=== PATIENT | male | born 1940 | race Caucasian/White ===

== ENCOUNTER 2018-10-12 16:17 | Inpatient (IN) ==
--- NOTE | 2018-10-12 16:26 | Emergency Department Note ---
Disposition Clinical Impression: Fever of unknown origin Disposition: Admitted As Inpatient Condition: Good Time of Disposition: 21:44 General Adult HPI - General Stated complaint: chest pain/weakness Time Seen by Provider: 10/12/18 16:18 Nursing Notes Reviewed: Yes Vital Signs Reviewed: Yes - History of Present Illness HPI Narrative: 78 -year-old male presents emergency department with concern for fever, low back pain, difficulty with incontinence of urine, difficulty with ambulation over the last few hours. Patient reports having history of lower back pain with surgery in March. He has recently been increasing his physical therapy of his lower lumbar back pain over the last few months. Patient also reports being at [facility] and picking blueberries over the last several days with his . They report no tick bites. He reported no rashes, no cough, no shortness of breath. Patient patient does have history of COPD, but is not on any oxygen at baseline. Denies any chest pain, abdominal pain, nausea, vomiting, dysuria, urinary frequency, urgency. - Related Data Allergies Allergy/AdvReac Type Severity Reaction Status Date / Time iodine Allergy Rash Verified 10/12/18 16:31 All systems ED: reviewed and negative except as stated. Review of Systems: As Per HPI Constitutional: Reports: fever Cardiovascular: Denies: chest pain Respiratory: Denies: cough, dyspnea, sputum production Gastrointestinal: Denies: abdominal pain, nausea, vomiting Genitourinary: Denies: urgency, dysuria, frequency Musculoskeletal: Reports: back pain Integumentary: Denies: rash Neurological: Reports: abnormal gait. Denies: numbness, paresthesias Physical Exam - General Limitations: no limitations General appearance: alert, in no apparent distress - Head Head exam: normocephalic - Eye Eye exam: Absent: scleral icterus - ENT ENT exam: normal oropharynx, mucous membranes dry - Neck Neck exam: Present: trachea midline. Absent: tenderness - Chest Chest inspection: Present: symmetric chest wall rise - Respiratory Respiratory exam: Present: normal lung sounds bilaterally. Absent: respiratory distress, accessory muscle use - Cardiovascular Cardiovascular exam: Present: normal rhythm, tachycardia, normal heart sounds - Abdominal Exam Abdominal exam: Present: soft, Non-Tender. Absent: distention, guarding, rebound, rigidity - Male exam: Present: normal inspection, normal testicular lie, other (sensation of the scrotum intact). Absent: erythema, ulcerations, testicular tenderness - Extremities Exam Extremities exam: Present: normal capillary refill. Absent: calf tenderness - Back Exam Back exam: Present: tenderness (midline lower lumbar spine) - Neurological Exam Neurological exam: Present: alert, oriented X3, CN II-XII intact. Absent: motor sensory deficit - Psychiatric Psychiatric exam: Present: normal affect, normal mood - Skin Skin exam: Present: warm, dry, intact, normal color. Absent: rash Course Vital Signs Temperature 103.3 F H 10/12/18 16:22 Pulse Rate 109 10/12/18 16:22 Respiratory Rate 28 10/12/18 16:22 Blood Pressure 165/84 10/12/18 16:22 O2 Sat by Pulse Oximetry 93 10/12/18 16:22 Temperature 99.3 F 10/12/18 21:30 Pulse Rate 88 10/12/18 21:30 Respiratory Rate 16 10/12/18 21:30 Blood Pressure 132/62 10/12/18 21:30 O2 Sat by Pulse Oximetry 94 10/12/18 21:30 Oxygen Delivery Oxygen Delivery Nasal Cannula Medical Decision Making - [facility] Narrative Medical decision making narrative: 78-year-old male presents emergency department with concern for fever, tachycardia, with lower lumbar back pain. No physical exam, patient does not have any rashes anywhere to be concern for cellulitis. No evidence of Waylon's gangrene upon inspection of the scrotal sac. Patient had a leukocytosis of 24,000. He was non-meningeal. No headache, do not suspect meningitis. No diarrhea to suspect C. difficile. Patient was started on vancomycin and Zosyn here. Chest CT did not reveal any evidence of pneumonia, CT scan of abdomen and pelvis revealed inflammation of the right inguinal region. Patient admitted for further management. Hemodynamically stable at that time. Afebrile. We have ordered an influenza swab as well as strep swab which are currently pending as well as blood cultures. Lumbar Spine MRI 10/12/18 16:32 IMPRESSION: Degenerative and operative changes as detailed above. Impingement of the exiting nerve roots at L4-5 and L5-S1. D/ / Catracho Qiu MD / Catracho Qiu MD Interpreting Provider: Catracho Qiu MD Abdomen/Pelvis CT 10/12/18 16:33 IMPRESSION: Mildly enlarged right inguinal lymph nodes with adjacent fat stranding, likely inflammatory/reactive. Correlation is recommended. Cholelithiasis. Left nephrolithiasis. D/ / Ananya Munroe Cha, MD / Ananya Munroe Cha, MD Interpreting Provider: Ananya Munroe Cha, MD Chest CT 10/12/18 16:33 IMPRESSION: Mildly enlarged right inguinal lymph nodes with adjacent fat stranding, likely inflammatory/reactive. Correlation is recommended. Cholelithiasis. Left nephrolithiasis. D/ / Ananya Munroe Cha, MD / Ananya Murnoe Cha, MD Interpreting Provider: Ananya Munroe Cha, MD Lumbar Spine CT 10/12/18 16:33 IMPRESSION: Minimal loss of height of the T6 and T11 vertebral bodies could represent prior compression fractures, likely remote. No acute bony abnormality of the lumbar spine. D/ / Ananya Munroe Cha, MD / Ananya Munroe Cha, MD Interpreting Provider: Ananya Munroe Cha, MD Thoracic Spine CT 10/12/18 16:33 IMPRESSION: Minimal loss of height of the T6 and T11 vertebral bodies could represent prior compression fractures, likely remote. No acute bony abnormality of the lumbar spine. D/ / Ananya Munroe Cha, MD / Ananya Munroe Cha, MD Interpreting Provider: Ananya Munroe Cha, MD - Lab Data Result diagrams: 10/12/18 16:20 10/12/18 16:20 Lab Results 10/12/18 10/12/18 10/12/18 Range/Units 16:15 16:20 16:20 WBC 24.1 H (4.3-11.1) K/mcL RBC 4.11 L (4.19-5.50) M/mcL Hgb 12.2 L (12.9-16.9) g/dL Hct 36.1 L (37.5-50.1) % MCV 87.8 (83.0-100.0) fL MCH 29.7 (28.0-33.3) pg MCHC 33.8 (31.6-35.5) g/dL RDW 13.2 (11.5-14.5) % Plt Count 157 (140-400) K/mcL MPV 10.7 (9.4-12.4) fL Immature Gran % 1.2 (0-4) % Seg Neutrophils % 90.9 % Lymphocytes % 4.2 % Monocytes % 3.5 % Eosinophils % 0.0 % Basophils % 0.2 % Neutrophils # 21.9 H (1.6-8.9) K/mcL Lymphocytes # 1.0 (0.6-4.6) K/mcL Monocytes # 0.8 (0.0-1.3) K/mcL Eosinophils # 0.0 (0.0-0.6) K/mcL Basophils # 0.1 (0.0-0.2) K/mcL ESR 20 H (0-10) mm/hr Sodium 135 L (136-145) mEq/L Potassium 3.5 (3.5-5.1) mEq/L Chloride 98 (98-107) mEq/L Carbon Dioxide 25 (23-29) mEq/L BUN 21 (8-23) mg/dL Creatinine 1.05 (0.70-1.30) mg/dL Est GFR ( Amer) > 60 (> 60) Est GFR (Non-Af Amer) > 60 (> 60) BUN/Creatinine Ratio 20 (6-26) Glucose 223 H (70-105) mg/dL POC Glucose (70-99) mg/dL Calculated Osmolality 290 (280-300) Lactic Acid (0.5-2.2) mmol/L Calcium 9.0 (8.6-10.3) mg/dL Phosphorus 2.1 L (2.7-4.5) mg/dL Magnesium 1.5 L (1.6-2.6) mg/dL Total Bilirubin 0.8 (0.3-1.0) mg/dL Direct Bilirubin 0.2 (0.0-0.2) mg/dL Indirect Bilirubin 0.6 (0.0-1.2) mg/dL AST 16 (13-39) Units/L ALT 14 (7-52) Units/L Alkaline Phosphatase 64 (34-104) Units/L Troponin I < 0.03 (< 0.04) ng/mL C-Reactive Protein 10 H (Less than 10) mg/L B-Natriuretic Peptide (Less than 100) pg/mL Serum Total Protein 6.9 (6.4-8.9) g/dL Albumin 4.1 (3.5-5.7) g/dL Globulin 2.8 (2.4-3.5) g/dL Albumin/Globulin Ratio 1.5 (1.1-2.2) Lipase 15 (11-82) Units/L Urine Color (Yellow) Urine Clarity (Clear) Urine pH (5.0-8.0) pH Units Ur Specific [place] (1.010-1.025) Urine Protein (Neg-Trace) mg/dL Urine Glucose (UA) (Normal) mg/dL Urine Ketones (Negative) mg/dL Urine Blood (Negative) Urine Nitrite (Negative) Urine Bilirubin (Negative) Urine Urobilinogen (Normal) mg/dL Ur Leukocyte Esterase (Negative) Urine Microscopic RBC (0-3) per hpf Urine Microscopic WBC (0-3) per hpf Ur Squamous Epith Cells (None-Few) per lpf Urine Bacteria (None-Few) per hpf Hyaline Casts (None-Few) per lpf Ur Culture Indicated? (NO) Lyme Total Antibody (Negative) 10/12/18 10/12/18 10/12/18 Range/Units 16:20 16:20 16:20 WBC (4.3-11.1) K/mcL RBC (4.19-5.50) M/mcL Hgb (12.9-16.9) g/dL Hct (37.5-50.1) % MCV (83.0-100.0) fL MCH (28.0-33.3) pg MCHC (31.6-35.5) g/dL RDW (11.5-14.5) % Plt Count (140-400) K/mcL MPV (9.4-12.4) fL Immature Gran % (0-4) % Seg Neutrophils % % Lymphocytes % % Monocytes % % Eosinophils % % Basophils % % Neutrophils # (1.6-8.9) K/mcL Lymphocytes # (0.6-4.6) K/mcL Monocytes # (0.0-1.3) K/mcL Eosinophils # (0.0-0.6) K/mcL Basophils # (0.0-0.2) K/mcL ESR (0-10) mm/hr Sodium (136-145) mEq/L Potassium (3.5-5.1) mEq/L Chloride (98-107) mEq/L Carbon Dioxide (23-29) mEq/L BUN (8-23) mg/dL Creatinine (0.70-1.30) mg/dL Est GFR ( Amer) (> 60) Est GFR (Non-Af Amer) (> 60) BUN/Creatinine Ratio (6-26) Glucose (70-105) mg/dL POC Glucose (70-99) mg/dL Calculated Osmolality (280-300) Lactic Acid 1.9 (0.5-2.2) mmol/L Calcium (8.6-10.3) mg/dL Phosphorus (2.7-4.5) mg/dL Magnesium (1.6-2.6) mg/dL Total Bilirubin (0.3-1.0) mg/dL Direct Bilirubin (0.0-0.2) mg/dL Indirect Bilirubin (0.0-1.2) mg/dL AST (13-39) Units/L ALT (7-52) Units/L Alkaline Phosphatase (34-104) Units/L Troponin I (< 0.04) ng/mL C-Reactive Protein (Less than 10) mg/L B-Natriuretic Peptide 149 H (Less than 100) pg/mL Serum Total Protein (6.4-8.9) g/dL Albumin (3.5-5.7) g/dL Globulin (2.4-3.5) g/dL Albumin/Globulin Ratio (1.1-2.2) Lipase (11-82) Units/L Urine Color (Yellow) Urine Clarity (Clear) Urine pH (5.0-8.0) pH Units Ur Specific [place] (1.010-1.025) Urine Protein (Neg-Trace) mg/dL Urine Glucose (UA) (Normal) mg/dL Urine Ketones (Negative) mg/dL Urine Blood (Negative) Urine Nitrite (Negative) Urine Bilirubin (Negative) Urine Urobilinogen (Normal) mg/dL Ur Leukocyte Esterase (Negative) Urine Microscopic RBC (0-3) per hpf Urine Microscopic WBC (0-3) per hpf Ur Squamous Epith Cells (None-Few) per lpf Urine Bacteria (None-Few) per hpf Hyaline Casts (None-Few) per lpf Ur Culture Indicated? (NO) Lyme Total Antibody Negative (Negative) 10/12/18 10/12/18 Range/Units 16:21 16:39 WBC (4.3-11.1) K/mcL RBC (4.19-5.50) M/mcL Hgb (12.9-16.9) g/dL Hct (37.5-50.1) % MCV (83.0-100.0) fL MCH (28.0-33.3) pg MCHC (31.6-35.5) g/dL RDW (11.5-14.5) % Plt Count (140-400) K/mcL MPV (9.4-12.4) fL Immature Gran % (0-4) % Seg Neutrophils % % Lymphocytes % % Monocytes % % Eosinophils % % Basophils % % Neutrophils # (1.6-8.9) K/mcL Lymphocytes # (0.6-4.6) K/mcL Monocytes # (0.0-1.3) K/mcL Eosinophils # (0.0-0.6) K/mcL Basophils # (0.0-0.2) K/mcL ESR (0-10) mm/hr Sodium (136-145) mEq/L Potassium (3.5-5.1) mEq/L Chloride (98-107) mEq/L Carbon Dioxide (23-29) mEq/L BUN (8-23) mg/dL Creatinine (0.70-1.30) mg/dL Est GFR ( Amer) (> 60) Est GFR (Non-Af Amer) (> 60) BUN/Creatinine Ratio (6-26) Glucose (70-105) mg/dL POC Glucose 223 H (70-99) mg/dL Calculated Osmolality (280-300) Lactic Acid (0.5-2.2) mmol/L Calcium (8.6-10.3) mg/dL Phosphorus (2.7-4.5) mg/dL Magnesium (1.6-2.6) mg/dL Total Bilirubin (0.3-1.0) mg/dL Direct Bilirubin (0.0-0.2) mg/dL Indirect Bilirubin (0.0-1.2) mg/dL AST (13-39) Units/L ALT (7-52) Units/L Alkaline Phosphatase (34-104) Units/L Troponin I (< 0.04) ng/mL C-Reactive Protein (Less than 10) mg/L B-Natriuretic Peptide (Less than 100) pg/mL Serum Total Protein (6.4-8.9) g/dL Albumin (3.5-5.7) g/dL Globulin (2.4-3.5) g/dL Albumin/Globulin Ratio (1.1-2.2) Lipase (11-82) Units/L Urine Color Yellow (Yellow) Urine Clarity Clear (Clear) Urine pH 6.0 (5.0-8.0) pH Units Ur Specific [place] 1.017 (1.010-1.025) Urine Protein Trace (Neg-Trace) mg/dL Urine Glucose (UA) 100 H (Normal) mg/dL Urine Ketones Negative (Negative) mg/dL Urine Blood Small H (Negative) Urine Nitrite Negative (Negative) Urine Bilirubin Negative (Negative) Urine Urobilinogen Normal (Normal) mg/dL Ur Leukocyte Esterase Negative (Negative) Urine Microscopic RBC 5-15 H (0-3) per hpf Urine Microscopic WBC 0-3 (0-3) per hpf Ur Squamous Epith Cells Few (None-Few) per lpf Urine Bacteria None Seen (None-Few) per hpf Hyaline Casts None Seen (None-Few) per lpf Ur Culture Indicated? NO (NO) Lyme Total Antibody (Negative) - EKG Data EKG #1 EKG attestation: Yes I reviewed and interpreted this EKG. EKG results narrative: 16:22 Rate 109 bpm, CA interval 199 ms, QRS duration 102 ms, QTC 442 ms, left axis deviation. Sinus tachycardia with occasional PVCs. No evidence of any ischemic ST changes.
[2018-10-12] MEDS ORDERED: Gadolinium Contrast Agent (WT Based) IV PRN (16:32)
[2018-10-12] MEDS ORDERED: 0.9 % Sodium Chloride 1,000 ML IVC ONE ×3 (16:39→17:48)
[2018-10-12 16:41] LABS: Basophils # 0.1 K/mcL (0.0-0.2); Basophils % 0.2 %; Hematocrit 36.1 % (37.5-50.1); Hemoglobin 12.2 g/dL (12.9-16.9); Immature Granulocytes % 1.2 % (0-4); Lymphocytes % 4.2 %; Mean Corpuscular HGB Conc 33.8 g/dL (31.6-35.5); Mean Corpuscular Hemoglobin 29.7 pg (28.0-33.3); Mean Corpuscular Volume 87.8 fL (83.0-100.0); Mean Platelet Volume 10.7 fL (9.4-12.4); Monocytes # 0.8 K/mcL (0.0-1.3); Monocytes % 3.5 %; Neutrophils # 21.9 K/mcL (1.6-8.9); Platelet Count 157 K/mcL (140-400); Red Blood Count 4.11 M/mcL (4.19-5.50); Red Cell Distribution Width 13.2 % (11.5-14.5); Segmented Neutrophils % 90.9 %; White Blood Count 24.1 K/mcL (4.3-11.1)
[2018-10-12 16:47] LABS: Bilirubin,Urine Negative (Negative); Blood,Urine Small (Negative); Clarity,Urine Clear (Clear); Color,Urine Yellow (Yellow); Glucose,Urine (UA) 100 mg/dL (Normal); Ketones,Urine Negative (Negative); Leukocyte Esterase,Urine Negative (Negative); Nitrite,Urine Negative (Negative); Protein,Urine Trace mg/dL (Neg-Trace); Specific Gravity,Urine 1.017 (1.010-1.025); Urobilinogen,Urine Normal (Normal)
[2018-10-12 16:50] LABS: Bacteria,Urine None Seen per hpf (None-Few); Hyaline Casts,Urine None Seen per lpf (None-Few); Squamous Epithelial Cell,Urine Few per lpf (None-Few); WBC,Urine 0-3 per hpf (0-3)
[2018-10-12] MEDS ORDERED: Piperacillin/Tazobactam 3.375 GM in Water for inj. (sterile) 20 ML IVP ONE (16:54)
[2018-10-12 17:05] LABS: Alanine Aminotransferase 14 Units/L (7-52); Albumin 4.1 g/dL (3.5-5.7); Albumin/Globulin Ratio 1.5 (1.1-2.2); Alkaline Phosphatase 64 Units/L (34-104); Aspartate Amino Transferase 16 Units/L (13-39); BUN/Creatinine Ratio 20 (6-26); Bilirubin,Direct 0.2 mg/dL (0.0-0.2); Bilirubin,Indirect 0.6 mg/dL (0.0-1.2); Bilirubin,Total 0.8 mg/dL (0.3-1.0); Blood Urea Nitrogen 21 mg/dL (8-23); Carbon Dioxide 25 mEq/L (23-29); Chloride 98 mEq/L (98-107); Globulin 2.8 g/dL (2.4-3.5); Glucose 223 mg/dL (70-105); Lipase 15 Units/L (11-82); Magnesium 1.5 mg/dL (1.6-2.6); Osmolality,Calculated 290 (280-300); Phosphorous 2.1 mg/dL (2.7-4.5); Potassium 3.5 mEq/L (3.5-5.1); Sodium 135 mEq/L (136-145); Total Protein 6.9 g/dL (6.4-8.9); Troponin I < 0.03 ng/mL (< 0.04); eGFR For African Americans > 60 (> 60); eGFR For Non-African Americans > 60 (> 60)
[2018-10-12 17:25] LABS: C-Reactive Protein 10 mg/L (Less than 10)
[2018-10-12] MEDS ORDERED: Ibuprofen 600 MG TABLET PO ONE (18:02)
[2018-10-12] MEDS ORDERED: Ketorolac 15 MG/ML VIAL IVP ONE (20:16)
[2018-10-12] MEDS ORDERED: Nitroglycerin 25 MG/250 ML INFUS..BTL IVC SCH (20:30)
--- NOTE | 2018-10-12 21:28 | Emergency Department Note ---
Disposition Clinical Impression: Fever of unknown origin Disposition: Admitted As Inpatient Condition: Good Time of Disposition: 21:32 General Adult HPI - General Chief complaint: ED Fever Stated complaint: chest pain/weakness Time Seen by Provider: 10/12/18 16:18 Source: patient Limitations: no limitations - History of Present Illness Pain Scale: 0 - Related Data Allergies Allergy/AdvReac Type Severity Reaction Status Date / Time iodine Allergy Rash Verified 10/12/18 16:31 Constitutional: Reports: fever Cardiovascular: Denies: chest pain Respiratory: Denies: cough, dyspnea, sputum production Gastrointestinal: Denies: abdominal pain, nausea, vomiting Genitourinary: Denies: urgency, dysuria, frequency Musculoskeletal: Reports: back pain Integumentary: Denies: rash Neurological: Reports: abnormal gait. Denies: numbness, paresthesias Past Medical History - Past Medical History Medical history: Reports: arthritis, COPD, GERD, hypertension - Social History Smoking Status: Never smoker Alcohol use: Reports: none Physical Exam - General Limitations: no limitations General appearance: alert, in no apparent distress Course Vital Signs Temperature 103.3 F H 10/12/18 16:22 Pulse Rate 109 10/12/18 16:22 Respiratory Rate 28 10/12/18 16:22 Blood Pressure 165/84 10/12/18 16:22 O2 Sat by Pulse Oximetry 93 10/12/18 16:22 Temperature 101.9 F H 10/12/18 17:50 Pulse Rate 95 10/12/18 20:37 Respiratory Rate 20 10/12/18 20:37 Blood Pressure 155/69 10/12/18 20:37 O2 Sat by Pulse Oximetry 95 10/12/18 20:37 Oxygen Delivery Oxygen Delivery Room Air Medical Decision Making - Lab Data Result diagrams: 10/12/18 16:20 10/12/18 16:20 Lab Results 10/12/18 10/12/18 10/12/18 Range/Units 16:15 16:20 16:20 WBC 24.1 H (4.3-11.1) K/mcL RBC 4.11 L (4.19-5.50) M/mcL Hgb 12.2 L (12.9-16.9) g/dL Hct 36.1 L (37.5-50.1) % MCV 87.8 (83.0-100.0) fL MCH 29.7 (28.0-33.3) pg MCHC 33.8 (31.6-35.5) g/dL RDW 13.2 (11.5-14.5) % Plt Count 157 (140-400) K/mcL MPV 10.7 (9.4-12.4) fL Immature Gran % 1.2 (0-4) % Seg Neutrophils % 90.9 % Lymphocytes % 4.2 % Monocytes % 3.5 % Eosinophils % 0.0 % Basophils % 0.2 % Neutrophils # 21.9 H (1.6-8.9) K/mcL Lymphocytes # 1.0 (0.6-4.6) K/mcL Monocytes # 0.8 (0.0-1.3) K/mcL Eosinophils # 0.0 (0.0-0.6) K/mcL Basophils # 0.1 (0.0-0.2) K/mcL ESR 20 H (0-10) mm/hr Sodium 135 L (136-145) mEq/L Potassium 3.5 (3.5-5.1) mEq/L Chloride 98 (98-107) mEq/L Carbon Dioxide 25 (23-29) mEq/L BUN 21 (8-23) mg/dL Creatinine 1.05 (0.70-1.30) mg/dL Est GFR ( Amer) > 60 (> 60) Est GFR (Non-Af Amer) > 60 (> 60) BUN/Creatinine Ratio 20 (6-26) Glucose 223 H (70-105) mg/dL POC Glucose (70-99) mg/dL Calculated Osmolality 290 (280-300) Lactic Acid (0.5-2.2) mmol/L Calcium 9.0 (8.6-10.3) mg/dL Phosphorus 2.1 L (2.7-4.5) mg/dL Magnesium 1.5 L (1.6-2.6) mg/dL Total Bilirubin 0.8 (0.3-1.0) mg/dL Direct Bilirubin 0.2 (0.0-0.2) mg/dL Indirect Bilirubin 0.6 (0.0-1.2) mg/dL AST 16 (13-39) Units/L ALT 14 (7-52) Units/L Alkaline Phosphatase 64 (34-104) Units/L Troponin I < 0.03 (< 0.04) ng/mL C-Reactive Protein 10 H (Less than 10) mg/L B-Natriuretic Peptide (Less than 100) pg/mL Serum Total Protein 6.9 (6.4-8.9) g/dL Albumin 4.1 (3.5-5.7) g/dL Globulin 2.8 (2.4-3.5) g/dL Albumin/Globulin Ratio 1.5 (1.1-2.2) Lipase 15 (11-82) Units/L Urine Color (Yellow) Urine Clarity (Clear) Urine pH (5.0-8.0) pH Units Ur Specific [place] (1.010-1.025) Urine Protein (Neg-Trace) mg/dL Urine Glucose (UA) (Normal) mg/dL Urine Ketones (Negative) mg/dL Urine Blood (Negative) Urine Nitrite (Negative) Urine Bilirubin (Negative) Urine Urobilinogen (Normal) mg/dL Ur Leukocyte Esterase (Negative) Urine Microscopic RBC (0-3) per hpf Urine Microscopic WBC (0-3) per hpf Ur Squamous Epith Cells (None-Few) per lpf Urine Bacteria (None-Few) per hpf Hyaline Casts (None-Few) per lpf Ur Culture Indicated? (NO) Lyme Total Antibody (Negative) 10/12/18 10/12/18 10/12/18 Range/Units 16:20 16:20 16:20 WBC (4.3-11.1) K/mcL RBC (4.19-5.50) M/mcL Hgb (12.9-16.9) g/dL Hct (37.5-50.1) % MCV (83.0-100.0) fL MCH (28.0-33.3) pg MCHC (31.6-35.5) g/dL RDW (11.5-14.5) % Plt Count (140-400) K/mcL MPV (9.4-12.4) fL Immature Gran % (0-4) % Seg Neutrophils % % Lymphocytes % % Monocytes % % Eosinophils % % Basophils % % Neutrophils # (1.6-8.9) K/mcL Lymphocytes # (0.6-4.6) K/mcL Monocytes # (0.0-1.3) K/mcL Eosinophils # (0.0-0.6) K/mcL Basophils # (0.0-0.2) K/mcL ESR (0-10) mm/hr Sodium (136-145) mEq/L Potassium (3.5-5.1) mEq/L Chloride (98-107) mEq/L Carbon Dioxide (23-29) mEq/L BUN (8-23) mg/dL Creatinine (0.70-1.30) mg/dL Est GFR ( Amer) (> 60) Est GFR (Non-Af Amer) (> 60) BUN/Creatinine Ratio (6-26) Glucose (70-105) mg/dL POC Glucose (70-99) mg/dL Calculated Osmolality (280-300) Lactic Acid 1.9 (0.5-2.2) mmol/L Calcium (8.6-10.3) mg/dL Phosphorus (2.7-4.5) mg/dL Magnesium (1.6-2.6) mg/dL Total Bilirubin (0.3-1.0) mg/dL Direct Bilirubin (0.0-0.2) mg/dL Indirect Bilirubin (0.0-1.2) mg/dL AST (13-39) Units/L ALT (7-52) Units/L Alkaline Phosphatase (34-104) Units/L Troponin I (< 0.04) ng/mL C-Reactive Protein (Less than 10) mg/L B-Natriuretic Peptide 149 H (Less than 100) pg/mL Serum Total Protein (6.4-8.9) g/dL Albumin (3.5-5.7) g/dL Globulin (2.4-3.5) g/dL Albumin/Globulin Ratio (1.1-2.2) Lipase (11-82) Units/L Urine Color (Yellow) Urine Clarity (Clear) Urine pH (5.0-8.0) pH Units Ur Specific [place] (1.010-1.025) Urine Protein (Neg-Trace) mg/dL Urine Glucose (UA) (Normal) mg/dL Urine Ketones (Negative) mg/dL Urine Blood (Negative) Urine Nitrite (Negative) Urine Bilirubin (Negative) Urine Urobilinogen (Normal) mg/dL Ur Leukocyte Esterase (Negative) Urine Microscopic RBC (0-3) per hpf Urine Microscopic WBC (0-3) per hpf Ur Squamous Epith Cells (None-Few) per lpf Urine Bacteria (None-Few) per hpf Hyaline Casts (None-Few) per lpf Ur Culture Indicated? (NO) Lyme Total Antibody Negative (Negative) 10/12/18 10/12/18 Range/Units 16:21 16:39 WBC (4.3-11.1) K/mcL RBC (4.19-5.50) M/mcL Hgb (12.9-16.9) g/dL Hct (37.5-50.1) % MCV (83.0-100.0) fL MCH (28.0-33.3) pg MCHC (31.6-35.5) g/dL RDW (11.5-14.5) % Plt Count (140-400) K/mcL MPV (9.4-12.4) fL Immature Gran % (0-4) % Seg Neutrophils % % Lymphocytes % % Monocytes % % Eosinophils % % Basophils % % Neutrophils # (1.6-8.9) K/mcL Lymphocytes # (0.6-4.6) K/mcL Monocytes # (0.0-1.3) K/mcL Eosinophils # (0.0-0.6) K/mcL Basophils # (0.0-0.2) K/mcL ESR (0-10) mm/hr Sodium (136-145) mEq/L Potassium (3.5-5.1) mEq/L Chloride (98-107) mEq/L Carbon Dioxide (23-29) mEq/L BUN (8-23) mg/dL Creatinine (0.70-1.30) mg/dL Est GFR ( Amer) (> 60) Est GFR (Non-Af Amer) (> 60) BUN/Creatinine Ratio (6-26) Glucose (70-105) mg/dL POC Glucose 223 H (70-99) mg/dL Calculated Osmolality (280-300) Lactic Acid (0.5-2.2) mmol/L Calcium (8.6-10.3) mg/dL Phosphorus (2.7-4.5) mg/dL Magnesium (1.6-2.6) mg/dL Total Bilirubin (0.3-1.0) mg/dL Direct Bilirubin (0.0-0.2) mg/dL Indirect Bilirubin (0.0-1.2) mg/dL AST (13-39) Units/L ALT (7-52) Units/L Alkaline Phosphatase (34-104) Units/L Troponin I (< 0.04) ng/mL C-Reactive Protein (Less than 10) mg/L B-Natriuretic Peptide (Less than 100) pg/mL Serum Total Protein (6.4-8.9) g/dL Albumin (3.5-5.7) g/dL Globulin (2.4-3.5) g/dL Albumin/Globulin Ratio (1.1-2.2) Lipase (11-82) Units/L Urine Color Yellow (Yellow) Urine Clarity Clear (Clear) Urine pH 6.0 (5.0-8.0) pH Units Ur Specific [place] 1.017 (1.010-1.025) Urine Protein Trace (Neg-Trace) mg/dL Urine Glucose (UA) 100 H (Normal) mg/dL Urine Ketones Negative (Negative) mg/dL Urine Blood Small H (Negative) Urine Nitrite Negative (Negative) Urine Bilirubin Negative (Negative) Urine Urobilinogen Normal (Normal) mg/dL Ur Leukocyte Esterase Negative (Negative) Urine Microscopic RBC 5-15 H (0-3) per hpf Urine Microscopic WBC 0-3 (0-3) per hpf Ur Squamous Epith Cells Few (None-Few) per lpf Urine Bacteria None Seen (None-Few) per hpf Hyaline Casts None Seen (None-Few) per lpf Ur Culture Indicated? NO (NO) Lyme Total Antibody (Negative) Attestation Statement - Attestation Attestation: I reviewed the residents documentation and agree with the residents assessment and plan of care. I have personally had face to face time with the patient. (Brief History, Brief Exam, and MDM) I personally supervised and was present for the weinberg/critical portions of the following procedures completed by the resident: EKG 78 year old male presents to the eD with complaints of weakness and fever. Sepsis workup with preformed and vanc and zosyn have been given. There were concernd for epidural abscess but MRI was negative for diskitis or osteo or abscess. He does howver have impginingement of the exiting nerve roots of L5-S1. Darcy does not display menigneal signs at this time and otherwise his headache and neck pain has improved which appeared to be muscle related. Darcy has been [facility] for further evlaustion
[2018-10-13] MEDS ORDERED: Acetaminophen 325 MG TABLET PO PRN (00:30)
[2018-10-13] MEDS ORDERED: Naloxone 0.4 MG/ML INJ IVP PRN (00:30)
[2018-10-13] MEDS ORDERED: D5% in Water 1,000 ML IVC PRN (00:33)
[2018-10-13] MEDS ORDERED: *HR* Dextrose 50 % in Water (Syg) 50 ML SYRINGE IVP PRN (00:33)
[2018-10-13] MEDS ORDERED: Dextrose Gel 15 GM/37.5 ML TUBE PO PRN ×2 (00:33)
[2018-10-13] MEDS ORDERED: *HR* Heparin 5,000 UNIT/ML VIAL IVP PRN ×2 (00:34)
[2018-10-13] MEDS ORDERED: *HR* Heparin 5,000 UNIT/ML VIAL IVP ONE (00:34)
[2018-10-13] MEDS ORDERED: Heparin 25,000 UNIT/250 ML D5W 25,000 UNIT/250 ML IV.SOLN IVC SCH (00:45)
[2018-10-13] MEDS: 0.9 % Sodium Chloride 1,000 ML IVC SCH ×2 (01:34→09:43)
--- NOTE | 2018-10-13 01:46 | Internal Med History&Physical ---
Date of Encounter: 10/12/18 Time of Encounter: 23:48 Internal Medicine - H&P: HPI Chief complaint: Fever of unknown origin Admitted From: Emergency Dept Plans for Post Hospital Care: Home History of present illness: Mr. Singh is a 78 year old male Patient presented to the emergency department with his as they were traveling through on their way home. 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 Over the last 24 hours, patient has felt weak and has had some instability when walking around. He has also felt somewhat dizzy. He had an episode of shaking, and his says that he was sort of like this with his previous stroke in 2016. They came to [facility] for further evaluation. In the emergency room patient's initial vital signs indicated a fever of 103.3, pulse of 109, respiratory rate 28, blood pressure 165/84, O2 saturation 93%. CBC: White count 24.1, hemoglobin 12.2, platelets 157 BMP: Within normal limits aside from elevated blood sugar of 223. Magnesium 1.5 Phosphorus 2.1 Liver enzymes within normal limits Troponin undetectable C-reactive protein 10 ESR 20 BNP 149 Lipase 15 Urinalysis negative for infection Lyme total antibody negative EKG sinus tachycardia with a rate of 109, QTC 442. No ischemic changes Thoracic and lumbar spine CT showed no acute abnormalities Chest and abdomen CT showed enlarged right inguinal lymph nodes with adjacent fat stranding likely inflammatory/reactive Lumbar spine MRI showed degenerative and operative changes and impingement of the exiting nerve roots at L4-L5 and L5-S1. In the emergency department patient received a total of 3 L of IV fluids, 1 g of Tylenol, blood cultures were drawn and he was started on vancomycin and Zosyn. He was admitted to the hospital for further evaluation. Upon my assessment, patient is resting comfortably in hospital bed in no acute distress. He denies chest pain, abdominal pain, nausea, vomiting, diarrhea, constipation and cough. He does state that he has pain in his right lower leg which is chronic, but he does have a little bit more pain than normal and more swelling than normal. He had been outside quite a bit over the last few days, but denies any bug bites. On the way back from the camp their air conditioning in their vehicle stopped working. He was also exposed to high levels of air- conditioning while he was at the camp, and was very chilled at times. He uncharacteristically skipped dinner last evening as well because he was not f eeling well enough to go to eat. He has a history of diabetes and uses a CPAP at night. He is a full code. Past Med Surg Social Fam HX - Past Medical History Medical history: arthritis, COPD, GERD, hypertension - Social History Smoking Status: Never smoker Alcohol use: none - Family History Mother Living Status: Age at : 74 Cause of : obesity Hx Family Cardiac Disorders: Yes Father Living Status: Age at : 84 Cause of : heart failure Internal Medicine - H&P: Meds Aspirin 325 mg PO DAILY 10/13/18 [History] Bystolic 10 mg PO DAILY 10/13/18 [History] Crestor 10 mg PO DAILY 10/13/18 [History] Felodipine ER 10 mg PO DAILY 10/13/18 [History] Folic Acid 1 mg PO DAILY 10/13/18 [History] Hyzaar 100-25 Tablet 100.25 tab-cap PO DAILY 10/13/18 [History] Levemir 55 units SQ DAILY 10/13/18 [History] Ranexa 1,000 mg PO BID 10/13/18 [History] Victoza 2-Darshan 1.8 mg SQ DAILY 10/13/18 [History] Vitamin D 1,000 units PO DAILY 10/13/18 [History] metFORMIN 1,000 mg PO BID 10/13/18 [History] Allergy/AdvReac Type Severity Reaction Status Date / Time iodine Allergy Rash Verified 10/12/18 16:31 All Systems PM: A 10-system review of systems was performed and is negative for pertinent findings except as documented above in the HPI. - Constitutional Vitals: Temp Pulse Resp BP Pulse Ox 99.7 F H 82 16 138/77 96 10/12/18 22:49 10/12/18 22:49 10/12/18 22:49 10/12/18 22:49 10/12/18 22:49 General appearance: Present: cooperative, A&O X 3, pleasant, no acute distress, answers questions appropriately Exam: - - Head Head exam: Present: normal inspection - Eye Eye exam: Present: EOMI, normal appearance. Absent: conjunctival injection Additional comments: No photosensitivity - Neck Neck exam general surgery: Present: full ROM. Absent: tenderness, nuchal rigidity Additional comments: Patient has normal range of motion at his baseline currently - Respiratory Respiratory exam: Present: CTAB. Absent: rales, respiratory distress, rhonchi, wheezes - Cardiovascular Cardiovascular exam: Present: RRR. Absent: diastolic murmur, systolic murmur - GI/Abdominal GI/Abdominal exam: Present: normal bowel sounds, soft. Absent: tenderness - Extremities Exam Extremities exam: Present: calf tenderness, pedal edema, warm, radial pulses palpable and symmetrical. Absent: tenderness Additional comments: Right-sided calf tenderness as well as 1-2+ pitting edema bilaterally. Right lower extremity also red in appearance, slightly worse than his baseline. - Back Exam Back exam: Present: tenderness. Absent: CVA tenderness (L), CVA tenderness (R) Additional comments: Lower back tenderness at baseline - Neurological Exam Neurological exam: Present: no focal deficits, strengths equal and symetr throughout. Absent: motor sensory deficit, facial droop, speech deficit - Skin Skin exam: Present: dry, erythema, normal color, warm Additional comments: Erythema at right lower leg Internal Med - H&P Results - Labs CBC & Chem 7: 10/12/18 16:20 10/12/18 16:20 Labs: Short CBC 10/12/18 Range/Units 16:20 WBC 24.1 H (4.3-11.1) K/mcL Hgb 12.2 L (12.9-16.9) g/dL Hct 36.1 L (37.5-50.1) % Plt Count 157 (140-400) K/mcL Neutrophils # 21.9 H (1.6-8.9) K/mcL BMP 10/12/18 16:20 Sodium 135 L Potassium 3.5 Chloride 98 Carbon Dioxide 25 BUN 21 Creatinine 1.05 Glucose 223 H Calcium 9.0 Cardiac Enzymes 10/12/18 Range/Units 16:20 Troponin I < 0.03 (< 0.04) ng/mL Liver Function 10/12/18 Range/Units 16:20 Total Bilirubin 0.8 (0.3-1.0) mg/dL Direct Bilirubin 0.2 (0.0-0.2) mg/dL AST 16 (13-39) Units/L ALT 14 (7-52) Units/L Alkaline Phosphatase 64 (34-104) Units/L Albumin 4.1 (3.5-5.7) g/dL Urine 10/12/18 Range/Units 16:39 Urine Color Yellow (Yellow) Urine Clarity Clear (Clear) Urine pH 6.0 (5.0-8.0) pH Units Ur Specific [place] 1.017 (1.010-1.025) Urine Protein Trace (Neg-Trace) mg/dL Urine Glucose (UA) 100 H (Normal) mg/dL - Impressions ITS Impressions Lumbar Spine MRI 10/12/18 16:32 IMPRESSION: Degenerative and operative changes as detailed above. Impingement of the exiting nerve roots at L4-5 and L5-S1. D/ / Catracho Qiu MD / Catracho Qiu MD Interpreting Provider: Catracho Qiu MD Abdomen/Pelvis CT 10/12/18 16:33 IMPRESSION: Mildly enlarged right inguinal lymph nodes with adjacent fat stranding, likely inflammatory/reactive. Correlation is recommended. Cholelithiasis. Left nephrolithiasis. D/ / Ananya Munroe Cha, MD / Ananya Munroe Cha, MD Interpreting Provider: Ananya Munroe Cha, MD Chest CT 10/12/18 16:33 IMPRESSION: Mildly enlarged right inguinal lymph nodes with adjacent fat stranding, likely inflammatory/reactive. Correlation is recommended. Cholelithiasis. Left nephrolithiasis. D/ / Ananya Munroe Cha, MD / Ananya Munroe Cha, MD Interpreting Provider: Ananya Munroe Cha, MD Lumbar Spine CT 10/12/18 16:33 IMPRESSION: Minimal loss of height of the T6 and T11 vertebral bodies could represent prior compression fractures, likely remote. No acute bony abnormality of the lumbar spine. D/ / Ananya Munroe Cha, MD / Ananya Munroe Cha, MD Interpreting Provider: Ananya Munroe Cha, MD Thoracic Spine CT 10/12/18 16:33 IMPRESSION: Minimal loss of height of the T6 and T11 vertebral bodies could represent prior compression fractures, likely remote. No acute bony abnormality of the lumbar spine. D/ / Ananya Munroe Cha, MD / Ananya Munroe Cha, MD Interpreting Provider: Ananya Munroe Cha, MD - Assessment and Plan (1) Fever of unknown origin Current Visit: Yes Status: Acute Assessment and plan: With elevated heart rate and respiratory rate. Lactic acid however at 1.9. White count elevated at 24.1. Fevers responsive to Tylenol. Chest imaging negative for infection. Abdominal CT did identify some inflammatory nodules on the right side. Patient has increased redness and swelling in his right lower extremity as well. Continue to monitor for worsening signs of infection Continue IV antibiotics Follow-up blood cultures Continue Tylenol for fevers Continue IV fluid hydration (2) Right leg swelling Current Visit: Yes Status: Acute Assessment and plan: Could be secondary to DVT. Patient had increased tenderness with palpation of his right calf which is not typical for him. He does have history of stroke in the past but no history of blood clots. Start heparin drip Right lower extremity venous Doppler to rule out DVT (3) Diabetes Current Visit: Yes Status: Acute Assessment and plan: Patient is an insulin dependent diabetic Monitor sugars ACHS Diabetic diet Low dose insulin sliding scale as needed Hold home meds. Qualifiers: Diabetes mellitus type: type 2 Diabetes mellitus intermodal customer service insulin use: with intermodal customer service use Diabetes mellitus complication status: with hyperglycemia Qualified Code(s): E11.65 - Type 2 diabetes mellitus with hyperglycemia; Z79.4 - FDC (current) use of insulin (4) Obstructive sleep apnea Current Visit: Yes Status: Acute Assessment and plan: Continue CPAP Respiratory therapy consult (5) Hypomagnesemia Current Visit: Yes Status: Acute Assessment and plan: Replenish, repeat labs in the morning (6) Hypophosphatemia Current Visit: Yes Status: Acute Assessment and plan: Replete, repeat labs in the morning (7) DVT prophylaxis Current Visit: Yes Status: Acute Assessment and plan: Continue heparin drip until DVT ruled out - Time Spent With Patient Total time spent is greater than 50% in coordination of care (as documented) at patient's floor/unit and/or counseling patient: Greater than 35 minutes
[2018-10-13 01:48] LABS: INR 1.2; Prothrombin Time 13.5 Seconds (9.4-12.1)
[2018-10-13] MEDS: Magnesium Oxide 400 MG TABLET PO SCH ×2 (02:30→08:24)
[2018-10-13 04:44] LABS: Acinetobacter baumannii by PCR Not Detected (Not Detect); Candida albicans by PCR Not Detected (Not Detect); Candida glabrata by PCR Not Detected (Not Detect); Candida krusei by PCR Not Detected (Not Detect); Candida parapsilosis by PCR Not Detected (Not Detect); Candida tropicalis by PCR Not Detected (Not Detect); Enterobacter cloacae Cmplx PCR Not Detected (Not Detect); Enterobacteriaceae by PCR Not Detected (Not Detect); Enterococcus by PCR Not Detected (Not Detect); Escherichia coli by PCR Not Detected (Not Detect); Klebsiella oxytoca by PCR Not Detected (Not Detect); Klebsiella pneumoniae by PCR Not Detected (Not Detect); Proteus by PCR Not Detected (Not Detect); Pseudomonas aeruginosa by PCR Not Detected (Not Detect); Serratia marcescens by PCR Not Detected (Not Detect); Staphylococcus aureus by PCR Not Detected (Not Detect); Staphylococcus by PCR Not Detected (Not Detect); Streptococcus agalactiae(B)PCR Not Detected (Not Detect); Streptococcus by PCR DETECTED (Not Detect); Streptococcus pneumoniae PCR Not Detected (Not Detect); Streptococcus pyogenes (A) PCR Not Detected (Not Detect)
[2018-10-13] MEDS ORDERED: Aminoglycoside Consult 1 EACH MC ONE (07:56)
[2018-10-13] MEDS ORDERED: Piperacillin/Tazobactam 3.375 GM in 0.9 % Sodium Chloride Mini Bag 100 ML IVPB SCH (08:00)
[2018-10-13] MEDS: Insulin LISPRO 300 UNITS/3 ML VIAL SQ SCH ×3 (08:24→17:21)
[2018-10-13 08:29] LABS: Hematocrit 30.9 % (37.5-50.1); Mean Corpuscular Hemoglobin 29.9 pg (28.0-33.3); Mean Corpuscular Volume 90.6 fL (83.0-100.0); Mean Platelet Volume 10.7 fL (9.4-12.4); Platelet Count 110 K/mcL (140-400); Red Blood Count 3.41 M/mcL (4.19-5.50); Red Cell Distribution Width 13.6 % (11.5-14.5); White Blood Count 16.1 K/mcL (4.3-11.1)
[2018-10-13 08:40] LABS: Hemoglobin 10.2 g/dL (12.9-16.9)
[2018-10-13 08:49] LABS: BUN/Creatinine Ratio 16 (6-26); Blood Urea Nitrogen 17 mg/dL (8-23); Calcium 7.9 mg/dL (8.6-10.3); Carbon Dioxide 26 mEq/L (23-29); Chloride 101 mEq/L (98-107); Glucose 236 mg/dL (70-105); Magnesium 1.6 mg/dL (1.6-2.6); Osmolality,Calculated 293 (280-300); Phosphorous 2.5 mg/dL (2.7-4.5); Potassium 2.9 mEq/L (3.5-5.1); Sodium 137 mEq/L (136-145); eGFR For African Americans > 60 (> 60); eGFR For Non-African Americans > 60 (> 60)
[2018-10-13] MEDS: Ipratropium/Albuterol Neb 3 ML IH PRN ×3 (13:15→23:01)
--- NOTE | 2018-10-13 13:51 | Event Note ---
Date of Encounter: 10/13/18 Time of Encounter: 09:35 H & P reviewed. DVT negative on dopplers, d/c heparin drip Blood culutees yielding streptococcus, d/c vanc and zosyn, initiate rocephin hypokalemia noted, order potassium cloride
[2018-10-13] MEDS: cefTRIAXone 2,000 MG in Water for inj. (sterile) 20 ML IVP SCH (17:21)
[2018-10-13] MEDS: Ranolazine 500 MG TAB.ER.12H PO SCH (19:53)
[2018-10-13] MEDS ORDERED: Insulin LISPRO 300 UNITS/3 ML VIAL SQ SCH (21:00)
[2018-10-14 04:16] LABS: Basophils % 0.1 %; Mean Platelet Volume 10.7 fL (9.4-12.4)
[2018-10-14 04:18] LABS: Hematocrit 28.6 % (37.5-50.1); Hemoglobin 9.3 g/dL (12.9-16.9); Immature Granulocytes % 0.6 % (0-4); Immature Platelets 4.4 % (1.1-6.1); Lymphocytes # 1.3 K/mcL (0.6-4.6); Lymphocytes % 12.5 %; Mean Corpuscular HGB Conc 32.5 g/dL (31.6-35.5); Mean Corpuscular Hemoglobin 29.3 pg (28.0-33.3); Mean Corpuscular Volume 90.2 fL (83.0-100.0); Monocytes # 0.5 K/mcL (0.0-1.3); Monocytes % 5.1 %; Neutrophils # 8.6 K/mcL (1.6-8.9); Red Blood Count 3.17 M/mcL (4.19-5.50); Red Cell Distribution Width 13.8 % (11.5-14.5); Segmented Neutrophils % 81.7 %; White Blood Count 10.5 K/mcL (4.3-11.1)
[2018-10-14 04:24] LABS: Platelet Count 92 K/mcL (140-400)
[2018-10-14 04:36] LABS: BUN/Creatinine Ratio 14 (6-26); Blood Urea Nitrogen 15 mg/dL (8-23); Calcium 7.8 mg/dL (8.6-10.3); Carbon Dioxide 24 mEq/L (23-29); Chloride 103 mEq/L (98-107); Glucose 237 mg/dL (70-105); Osmolality,Calculated 289 (280-300); Potassium 3.3 mEq/L (3.5-5.1); Sodium 135 mEq/L (136-145); eGFR For African Americans > 60 (> 60); eGFR For Non-African Americans > 60 (> 60)
[2018-10-14] MEDS: Aspirin 325 MG TABLET PO SCH (08:31)
[2018-10-14] MEDS: Ranolazine 500 MG TAB.ER.12H PO SCH ×2 (08:31→21:46)
[2018-10-14] MEDS: Magnesium Oxide 400 MG TABLET PO SCH (08:32)
[2018-10-14] MEDS: NIFEdipine XL (24 HR) 30 MG TAB.ER.24 PO SCH (08:32)
[2018-10-14] MEDS: Insulin DETEMIR 100 UNIT/ML X5UNITS SQ SCH (08:32)
[2018-10-14] MEDS: Folic Acid 1 MG TABLET PO SCH (08:32)
[2018-10-14] MEDS: Insulin LISPRO 300 UNITS/3 ML VIAL SQ SCH ×2 (08:32→12:22)
[2018-10-14] MEDS: Ipratropium/Albuterol Neb 3 ML IH SCH ×5 (09:43→23:22)
--- NOTE | 2018-10-14 12:01 | Internal Med Progress Note ---
Hospitalist Progress Note - Encounter Date of Encounter: 10/14/18 Time of Encounter: 09:30 - Subjective Interval History: Mr. 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 He just finished abx course for his bronchitis a week ago. He also noticed diffuse swelling and erythema in Rt leg. He was admitted in the hospital and started him on empirical antibiotic Zosyn and Vanc initially. His blood cx growing Group G strep, so switched to IV Abx Rocephin since y/d. He denied any CP . Still having moderate SOB and RILEY. His leg is still swollen, edematous, erythematous and tender. He sill having fever spikes, with T max 100.5 last night. - Exam Vitals: Temp Pulse Resp BP Pulse Ox 99.0 F 79 18 156/83 90 10/14/18 07:12 10/14/18 07:12 10/14/18 09:44 10/14/18 07:12 10/14/18 09:44 Exam: Gen: Alert, awake, Oriented to time,place and person Chest: Diminished breath sounds B/L, No wheezing, No crackles, No rales Heart: S1S2+ RRR No murmurs Abd: Soft, NT, BS +, No organomegaly Ext: Diffuse, moderate edema, erythema and tenderness in Rt leg noticed.. He does mild chronic edema in left leg too. pulses are palpable, No calf tenderness Neuro : No acute focal neuro deficits noticed Skin: No rash. - Assessment and Plan (1) Sepsis Current Visit: Yes Status: Acute Assessment and Plan: He meets sepsis criteria with fever, leukocytosis and source of inf as cellulites Cont empirical abx IV Rocephin (2) Bacteremia Current Visit: Yes Status: Acute Assessment and Plan: Blood cx grew Group G Strep cont IV Rocephin repeat blood cx now Patient does need to stay in the hospital more than 2 midnights due to his complex medical problems. So we will change him to full admission today. I did review my colleague Dr. Blue's H & P including HPI, PMH, PSH, FH, SH, and ROS no changes noticed (3) Cellulitis of right leg Current Visit: Yes Status: Acute Assessment and Plan: He still has diffuse swelling, erythema, tender and warm to touch cont empirical abx Rocephin will try to keep leg elevated (4) Right leg swelling Current Visit: Yes Status: Acute Assessment and Plan: rued out DVT Cont iv abx and above care (5) Diabetes Current Visit: Yes Status: Acute Assessment and Plan: on ADA diet and ISS (6) Obstructive sleep apnea Current Visit: Yes Status: Acute Assessment and Plan: Continue CPAP (7) Hypomagnesemia Current Visit: Yes Status: Acute Assessment and Plan: resolved (8) Hypophosphatemia Current Visit: Yes Status: Acute Assessment and Plan: Replete, repeat labs in the morning (9) DVT prophylaxis Current Visit: Yes Status: Acute Assessment and Plan: on SQ Heparin - Time Spent with Patient Total time spent is greater than 50% in coordination of care (as documented) at patient's floor/unit and/or counseling patient: Internal Medicine: Result - Labs CBC & Chem 7: 10/14/18 04:00 10/14/18 04:00 Labs: Short CBC 10/14/18 Range/Units 04:00 WBC 10.5 (4.3-11.1) K/mcL Hgb 9.3 L (12.9-16.9) g/dL Hct 28.6 L (37.5-50.1) % Plt Count 92 L (140-400) K/mcL Neutrophils # 8.6 (1.6-8.9) K/mcL BMP 10/14/18 04:00 Sodium 135 L Potassium 3.3 L Chloride 103 Carbon Dioxide 24 BUN 15 Creatinine 1.04 Glucose 237 H Calcium 7.8 L - ABG Interpretation ABG results: PT/INR, D-dimer PT 13.5 Seconds (9.4-12.1) H 10/13/18 01:29 Consult Discharge Plan - Plan (1) Sepsis Qualifiers: Sepsis type: sepsis due to unspecified organism Qualified Code(s): A41.9 - Sepsis, unspecified organism (5) Diabetes Qualifiers: Diabetes mellitus type: type 2 Diabetes mellitus long term care pharmacist insulin use: with long term care pharmacist use Diabetes mellitus complication status: with hyperglycemia Qualified Code(s): E11.65 - Type 2 diabetes mellitus with hyperglycemia; Z79.4 - detention (current) use of insulin
--- NOTE | 2018-10-14 12:58 | Electrocardiograph Report ---
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
[2018-10-14] MEDS ORDERED: Furosemide 40 MG/4 ML VIAL IVP ONE (15:48)
[2018-10-14 15:59] LABS: ABG Base Excess 2 mEq/L (-2 to 3); ABG HCO3 26 mEq/L (21-27); ABG Oxygen Saturation 87 % (95-98); ABG PCO2 37 mmHg (35-45); ABG PH 7.46 pH Units (7.32-7.45); ABG PO2 50 mmHg (85-104); ABG TCO2 27 mEq/L (20-26); Blood Gas PEEP 7 cm H2O
[2018-10-14] MEDS ORDERED: Insulin LISPRO 300 UNITS/3 ML VIAL SQ SCH ×2 (16:13→16:14)
[2018-10-14] MEDS: cefTRIAXone 2,000 MG in Water for inj. (sterile) 20 ML IVP SCH (16:20)
[2018-10-14] MEDS: MethylPREDNISolone 40 MG/ML VIAL IVP SCH (16:22)
[2018-10-14] MEDS: levoFLOXacin 750 MG/150 ML 750 MG/150 ML BAG IVPB SCH (17:24)
[2018-10-14] MEDS: Piperacillin/Tazobactam 3.375 GM in 0.9 % Sodium Chloride Mini Bag 100 ML IVPB SCH (17:24)
[2018-10-14 19:28] LABS: Adenovirus Not Detected (Not Detect); Bordetella Pertussis Not Detected (Not Detect); Chlamydophila pneumoniae Not Detected (Not Detect); Coronavirus 229E Not Detected (Not Detect); Coronavirus HKU1 Not Detected (Not Detect); Coronavirus NL63 Not Detected (Not Detect); Coronavirus OC43 Not Detected (Not Detect); Human Metapneumovirus Not Detected (Not Detect); Human Rhinovirus/Enterovirus Not Detected (Not Detect); Influenza A Subtype 2009 H1 Not Detected (Not Detect); Influenza A Untypeable Not Detected (Not Detect); Influenza B Not Detected (Not Detect); Mycoplasma pneumoniae Not Detected (Not Detect); Parainfluenza Virus 1 Not Detected (Not Detect); Parainfluenza Virus 2 Not Detected (Not Detect); Parainfluenza Virus 3 Not Detected (Not Detect); Parainfluenza Virus 4 Not Detected (Not Detect); Respiratory Syncytial Virus Not Detected (Not Detect)
[2018-10-15] MEDS: MethylPREDNISolone 40 MG/ML VIAL IVP SCH ×3 (00:06→17:59)
[2018-10-15] MEDS: Piperacillin/Tazobactam 3.375 GM in 0.9 % Sodium Chloride Mini Bag 100 ML IVPB SCH ×4 (00:07→23:56)
[2018-10-15] MEDS: Ipratropium/Albuterol Neb 3 ML IH SCH ×6 (03:53→23:43)
[2018-10-15 07:11] LABS: Hemoglobin 10.2 g/dL (12.9-16.9); Red Cell Distribution Width 13.6 % (11.5-14.5)
[2018-10-15 07:13] LABS: Hematocrit 30.8 % (37.5-50.1); Immature Platelets 7.5 % (1.1-6.1); Mean Corpuscular HGB Conc 33.1 g/dL (31.6-35.5); Mean Corpuscular Hemoglobin 29.4 pg (28.0-33.3); Mean Corpuscular Volume 88.8 fL (83.0-100.0); Mean Platelet Volume 11.4 fL (9.4-12.4); Red Blood Count 3.47 M/mcL (4.19-5.50); White Blood Count 9.7 K/mcL (4.3-11.1)
[2018-10-15 07:31] LABS: BUN/Creatinine Ratio 19 (6-26); Blood Urea Nitrogen 21 mg/dL (8-23); Calcium 8.4 mg/dL (8.6-10.3); Carbon Dioxide 22 mEq/L (23-29); Chloride 101 mEq/L (98-107); Glucose 395 mg/dL (70-105); Magnesium 1.9 mg/dL (1.6-2.6); Osmolality,Calculated 299 (280-300); Potassium 3.8 mEq/L (3.5-5.1); Sodium 135 mEq/L (136-145); eGFR For African Americans > 60 (> 60); eGFR For Non-African Americans > 60 (> 60)
[2018-10-15] MEDS: levoFLOXacin 750 MG/150 ML 750 MG/150 ML BAG IVPB SCH (08:56)
[2018-10-15] MEDS: NIFEdipine XL (24 HR) 30 MG TAB.ER.24 PO SCH (08:57)
[2018-10-15] MEDS: Ranolazine 500 MG TAB.ER.12H PO SCH ×2 (08:58→21:06)
[2018-10-15] MEDS: Folic Acid 1 MG TABLET PO SCH (08:58)
[2018-10-15] MEDS: Aspirin 325 MG TABLET PO SCH (08:58)
[2018-10-15] MEDS: Magnesium Oxide 400 MG TABLET PO SCH (08:58)
[2018-10-15] MEDS: Insulin LISPRO 300 UNITS/3 ML VIAL SQ SCH ×5 (09:19→21:06)
[2018-10-15] MEDS: Insulin DETEMIR 100 UNIT/ML X5UNITS SQ SCH ×3 (11:44→21:06)
[2018-10-15] MEDS: Furosemide 40 MG/4 ML VIAL IVP SCH ×2 (11:45→17:55)
--- NOTE | 2018-10-15 12:38 | Internal Med Progress Note ---
Hospitalist Progress Note - Encounter Date of Encounter: 10/15/18 Time of Encounter: 09:00 - Subjective Interval History: Mr. 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 He just finished abx course for his bronchitis a week ago. He also noticed diffuse swelling and erythema in Rt leg. He was admitted in the hospital and started him on empirical antibiotic Zosyn and Vanc initially. His blood cx growing Group G strep, so switched to IV Abx Rocephin. Y/D he became more hypoxic and in severe respiratory failure. His CXR showed b/l lower lobe infiltrates. So I switched his abx to Zosyn and Levaquin. Gave him IV Lasix 40mg x 1 dose. He was placed on our BiPAP with FiO2 50%. Now pt is doing well. He was off the BiPAP this morning and breathing comfortably on 3 lit O2 NC. He denied any CP. His leg swelling and erythema also little better today. - Exam Vitals: Temp Pulse Resp BP Pulse Ox 97.9 F 85 16 144/68 93 10/15/18 11:31 10/15/18 11:31 10/15/18 11:31 10/15/18 11:31 10/15/18 11:31 Exam: Gen: Alert, awake, Oriented to time,place and person Chest: Diminished breath sounds B/L, moderate wheezing, No crackles, rales + Heart: S1S2+ RRR No murmurs Abd: Soft, NT, BS +, No organomegaly Ext: Improving edema, erythema and tenderness in Rt leg noticed.. He does mild chronic edema in left leg too. pulses are palpable, No calf tenderness Neuro : No acute focal neuro deficits noticed Skin: No rash. - Assessment and Plan (1) Acute respiratory failure with hypoxia Current Visit: Yes Status: Acute Assessment and Plan: Due to MLL PNA Improving slowly currently on 3 lit O2 NC Will use BiPAP as needed during day time and continuous at night time cont empirical abx and diuretics (2) Pneumonia Current Visit: Yes Status: Acute Assessment and Plan: Mostly bacterial cont broad spec abx Zosyn and Levaquin will encourage frequent spirometry f/u on sputum cx (3) COPD exacerbation Current Visit: Yes Status: Acute Assessment and Plan: Improving start tapering his steroids cont frequent broncho dilator therapy (4) Sepsis Current Visit: Yes Status: Acute Assessment and Plan: He met sepsis criteria with fever, leukocytosis and source of inf as cellulites as well as PNA Improving cont empirical abx IV Zosyn and Levaquin (5) Bacteremia Current Visit: Yes Status: Acute Assessment and Plan: Blood cx grew Group G Strep Repeat blood cx - no growth so far Cont IV Zosyn for now (6) Cellulitis of right leg Current Visit: Yes Status: Acute Assessment and Plan: He still has diffuse swelling, erythema, tender and warm to touch cont empirical abx Zosyn will try to keep leg elevated started him on IV Lasix (7) Right leg swelling Current Visit: Yes Status: Acute Assessment and Plan: rued out DVT Could be due to Cellulites Cont iv abx and above care (8) Diabetes Current Visit: Yes Status: Acute Assessment and Plan: BS fairly controlled Due to steroids too started tapering steroids also changed Levemir to 45 U BID Changed ISS to High grade (9) Obstructive sleep apnea Current Visit: Yes Status: Acute Assessment and Plan: Continue BiPAP (10) Hypomagnesemia Current Visit: Yes Status: Acute Assessment and Plan: resolved (11) Hypophosphatemia Current Visit: Yes Status: Acute Assessment and Plan: Replete, repeat labs in the morning (12) DVT prophylaxis Current Visit: Yes Status: Acute Assessment and Plan: on SQ Heparin - Time Spent with Patient Total time spent is greater than 50% in coordination of care (as documented) at patient's floor/unit and/or counseling patient: Internal Medicine: Result - Labs CBC & Chem 7: 10/15/18 06:19 10/15/18 06:19 Labs: Short CBC 10/15/18 Range/Units 06:19 WBC 9.7 (4.3-11.1) K/mcL Hgb 10.2 L (12.9-16.9) g/dL Hct 30.8 L (37.5-50.1) % Plt Count 95 L (140-400) K/mcL BMP 10/15/18 06:19 Sodium 135 L Potassium 3.8 Chloride 101 Carbon Dioxide 22 L BUN 21 Creatinine 1.09 Glucose 395 H Calcium 8.4 L - ABG Interpretation ABG results: ABG ABG pH 7.46 pH Units (7.32-7.45) H 10/14/18 15:52 ABG pCO2 37 mmHg (35-45) 10/14/18 15:52 ABG pO2 50 mmHg (85-104) L* 10/14/18 15:52 ABG O2 Saturation 87 % (95-98) L 10/14/18 15:52 PT/INR, D-dimer PT 13.5 Seconds (9.4-12.1) H 10/13/18 01:29 - Impressions Impressions Chest X-Ray 10/14/18 15:10 IMPRESSION: Mild patchy opacification of the mid to lower lungs bilaterally, left greater than right. 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
[2018-10-15] MEDS ORDERED: Perflutren Lipid Microsphere 1.3 ML in 0.9 % Sodium Chloride 8.7 ML IVP ONE (14:09)
[2018-10-15] MEDS ORDERED: Insulin LISPRO 300 UNITS/3 ML VIAL SQ ONE (15:32)
[2018-10-16] MEDS: Ipratropium/Albuterol Neb 3 ML IH SCH ×6 (04:21→23:39)
[2018-10-16 05:33] LABS: Hematocrit 31.4 % (37.5-50.1); Hemoglobin 10.3 g/dL (12.9-16.9); Mean Corpuscular HGB Conc 32.8 g/dL (31.6-35.5); Mean Corpuscular Hemoglobin 29.7 pg (28.0-33.3); Mean Corpuscular Volume 90.5 fL (83.0-100.0); Mean Platelet Volume 11.3 fL (9.4-12.4); Platelet Count 146 K/mcL (140-400); Red Blood Count 3.47 M/mcL (4.19-5.50); Red Cell Distribution Width 13.9 % (11.5-14.5); White Blood Count 12.1 K/mcL (4.3-11.1)
[2018-10-16] MEDS: MethylPREDNISolone 40 MG/ML VIAL IVP SCH ×2 (05:45→17:07)
[2018-10-16 05:48] LABS: BUN/Creatinine Ratio 28 (6-26); Blood Urea Nitrogen 29 mg/dL (8-23); Calcium 8.9 mg/dL (8.6-10.3); Carbon Dioxide 28 mEq/L (23-29); Chloride 101 mEq/L (98-107); Glucose 60 mg/dL (70-105); Magnesium 2.1 mg/dL (1.6-2.6); Osmolality,Calculated 296 (280-300); Potassium 3.7 mEq/L (3.5-5.1); Sodium 141 mEq/L (136-145); eGFR For African Americans > 60 (> 60); eGFR For Non-African Americans > 60 (> 60)
[2018-10-16] MEDS: Insulin LISPRO 300 UNITS/3 ML VIAL SQ SCH ×4 (07:43→20:21)
[2018-10-16] MEDS: Magnesium Oxide 400 MG TABLET PO SCH (10:00)
[2018-10-16] MEDS: Aspirin 325 MG TABLET PO SCH (10:01)
[2018-10-16] MEDS: Folic Acid 1 MG TABLET PO SCH (10:01)
[2018-10-16] MEDS: NIFEdipine XL (24 HR) 30 MG TAB.ER.24 PO SCH (10:01)
[2018-10-16] MEDS: Ranolazine 500 MG TAB.ER.12H PO SCH ×2 (10:01→20:21)
[2018-10-16] MEDS: Piperacillin/Tazobactam 3.375 GM in 0.9 % Sodium Chloride Mini Bag 100 ML IVPB SCH ×2 (10:02→17:07)
[2018-10-16] MEDS: levoFLOXacin 750 MG/150 ML 750 MG/150 ML BAG IVPB SCH (10:03)
[2018-10-16] MEDS: Insulin DETEMIR 100 UNIT/ML X5UNITS SQ SCH ×2 (10:05→20:21)
--- NOTE | 2018-10-16 13:55 | Internal Med Progress Note ---
Hospitalist Progress Note - Encounter Date of Encounter: 10/16/18 Time of Encounter: 08:30 - Subjective Interval History: Pt was seen and examined at bed side. Pt stated he is feeling much better today. he is breathing comfortably on RA. He still has moderate SOB and RILEY. His Rt leg swelling and erythema also better now - Exam Vitals: Temp Pulse Resp BP Pulse Ox 98.5 F 80 16 156/71 96 10/16/18 11:53 10/16/18 11:53 10/16/18 11:53 10/16/18 11:53 10/16/18 11:53 Exam: Gen: Alert, awake, Oriented to time,place and person Chest: Diminished breath sounds B/L, moderate wheezing, No crackles, rales + Heart: S1S2+ RRR No murmurs Abd: Soft, NT, BS +, No organomegaly Ext: Improving edema, erythema and tenderness in Rt leg noticed.. He does mild chronic edema in left leg too. pulses are palpable, No calf tenderness Neuro : No acute focal neuro deficits noticed Skin: No rash. - Assessment and Plan (1) Acute respiratory failure with hypoxia Current Visit: Yes Status: Acute Assessment and Plan: Due to MLL PNA Improving slowly currently on RA Will do home O2 eval Will use BiPAP as needed during day time and continuous at night time cont empirical abx (2) Pneumonia Current Visit: Yes Status: Acute Assessment and Plan: Mostly bacterial cont broad spec abx Zosyn and Levaquin will encourage frequent spirometry f/u on sputum cx (3) COPD exacerbation Current Visit: Yes Status: Acute Assessment and Plan: Improving start tapering his steroids cont frequent broncho dilator therapy (4) Sepsis Current Visit: Yes Status: Acute Assessment and Plan: He met sepsis criteria with fever, leukocytosis and source of inf as cellulites as well as PNA Improving cont empirical abx IV Zosyn and Levaquin (5) Bacteremia Current Visit: Yes Status: Acute Assessment and Plan: Blood cx grew Group G Strep Repeat blood cx - no growth so far Cont IV Zosyn for now (6) Cellulitis of right leg Current Visit: Yes Status: Acute Assessment and Plan: Slowly improving swelling, erythema, tender and warm to touch cont empirical abx Zosyn will try to keep leg elevated d/c Lasix (7) Right leg swelling Current Visit: Yes Status: Acute Assessment and Plan: rued out DVT Could be due to Cellulites Cont iv abx and above care (8) Diabetes Current Visit: Yes Status: Acute Assessment and Plan: BS are much better today started tapering steroids Cont Levemir to 45 U BID Cont High grade ISS d/c Pre meal Insulin (9) Obstructive sleep apnea Current Visit: Yes Status: Acute Assessment and Plan: Continue BiPAP (10) Hypophosphatemia Current Visit: Yes Status: Acute Assessment and Plan: Replete, repeat labs in the morning (11) DVT prophylaxis Current Visit: Yes Status: Acute Assessment and Plan: on SQ Heparin - Time Spent with Patient Total time spent is greater than 50% in coordination of care (as documented) at patient's floor/unit and/or counseling patient: Internal Medicine: Result - Labs CBC & Chem 7: 10/16/18 04:20 10/16/18 04:20 Labs: Short CBC 10/16/18 Range/Units 04:20 WBC 12.1 H (4.3-11.1) K/mcL Hgb 10.3 L (12.9-16.9) g/dL Hct 31.4 L (37.5-50.1) % Plt Count 146 D (140-400) K/mcL BMP 10/16/18 04:20 Sodium 141 Potassium 3.7 Chloride 101 Carbon Dioxide 28 BUN 29 H Creatinine 1.04 Glucose 60 L Calcium 8.9 - ABG Interpretation ABG results: ABG ABG pH 7.46 pH Units (7.32-7.45) H 10/14/18 15:52 ABG pCO2 37 mmHg (35-45) 10/14/18 15:52 ABG pO2 50 mmHg (85-104) L* 10/14/18 15:52 ABG O2 Saturation 87 % (95-98) L 10/14/18 15:52 PT/INR, D-dimer PT 13.5 Seconds (9.4-12.1) H 10/13/18 01:29 - Impressions Impressions Chest X-Ray 10/16/18 08:40 IMPRESSION: Slight improved aeration of the lung bases. Small left-sided pleural effusion is likely present D/ / Hesham Horton MD / Hesham Horton MD Interpreting Provider: Hesham Horton MD Consult Discharge Plan - Plan Referrals: NONE,PCP [Primary Care Provider] - (4) Sepsis Qualifiers: Sepsis type: sepsis due to unspecified organism Qualified Code(s): A41.9 - Sepsis, unspecified organism (8) Diabetes Qualifiers: Diabetes mellitus type: type 2 Diabetes mellitus [facility] insulin use: with long term acute care registered nurse use Diabetes mellitus complication status: with hyperglycemia Qualified Code(s): E11.65 - Type 2 diabetes mellitus with hyperglycemia; Z79.4 - senior living (current) use of insulin
[2018-10-17] MEDS: Piperacillin/Tazobactam 3.375 GM in 0.9 % Sodium Chloride Mini Bag 100 ML IVPB SCH ×2 (00:12→08:07)
[2018-10-17] MEDS: Ipratropium/Albuterol Neb 3 ML IH SCH ×2 (03:35→07:13)
[2018-10-17] MEDS: MethylPREDNISolone 40 MG/ML VIAL IVP SCH (05:48)
[2018-10-17 07:26] VITALS: BP 170/87
[2018-10-17] MEDS: Insulin DETEMIR 100 UNIT/ML X5UNITS SQ SCH (08:05)
[2018-10-17] MEDS: Folic Acid 1 MG TABLET PO SCH (08:05)
[2018-10-17] MEDS: NIFEdipine XL (24 HR) 30 MG TAB.ER.24 PO SCH (08:05)
[2018-10-17] MEDS: Magnesium Oxide 400 MG TABLET PO SCH (08:05)
[2018-10-17] MEDS: Ranolazine 500 MG TAB.ER.12H PO SCH (08:05)
[2018-10-17] MEDS: Aspirin 325 MG TABLET PO SCH (08:05)
[2018-10-17] MEDS: Insulin LISPRO 300 UNITS/3 ML VIAL SQ SCH (08:06)
[2018-10-17] MEDS ORDERED: (Zinc [Zinc Chelated] 50 MG) PO SCH (09:00)
[2018-10-17] MEDS ORDERED: NEBIVOLOL HCL 10 MG PO SCH (09:00)
[2018-10-17] MEDS ORDERED: Ranolazine 500 MG TAB.ER.12H PO SCH ×2 (09:00→18:00)
[2018-10-17] MEDS ORDERED: Losartan/HCTZ 50-12.5 TABLET PO SCH (09:00)
[2018-10-17] MEDS ORDERED: ROSUVASTATIN CALCIUM 10 MG PO SCH (09:00)
--- NOTE | 2018-10-17 09:41 | Discharge Summary ---
- NOTES TO OUTPATIENT PROVIDER Notes to Outpatient Provider: f/u with PCP in one week. f/u with Pulmonary in 1-2 weeks. Please go for out pt f/u sleep study. Orders not resulted at time of discharge: Pending orders 10/14/18 11:52 Culture,Blood [BC] Routine 10/14/18 15:50 Sputum Culture [Culture,Sputum with Gram Stain] [RM] Routine Date of Encounter: 10/17/18 Time of Encounter: 09:00 - Discharge Diagnosis (1) Acute respiratory failure with hypoxia Priority: Primary Status: Acute (2) Pneumonia Priority: Primary Status: Acute Qualifiers: Pneumonia type: due to unspecified organism Laterality: bilateral Lung location: lower lobe of lung Qualified Code(s): J18.1 - Lobar pneumonia, unspecified organism (3) COPD exacerbation Priority: Primary Status: Acute (4) Sepsis Priority: Primary Status: Acute Qualifiers: Sepsis type: sepsis due to unspecified organism Qualified Code(s): A41.9 - Sepsis, unspecified organism (5) Bacteremia Priority: Primary Status: Acute (6) Cellulitis of right leg Priority: Primary Status: Acute (7) Right leg swelling Priority: Secondary Status: Acute (8) Diabetes Priority: Secondary Status: Acute Qualifiers: Diabetes mellitus type: type 2 Diabetes mellitus intermediate designer insulin use: with fdc use Diabetes mellitus complication status: with hyperglycemia Qualified Code(s): E11.65 - Type 2 diabetes mellitus with hyperglycemia; 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 He just finished abx course for his bronchitis a week ago. He also noticed diffuse swelling and erythema in Rt leg. He was admitted in the hospital and started him on empirical antibiotic Zosyn and Vanc initially. His blood cx growing Group G strep, so switched to IV Abx Rocephin. On 10/14/18 he became more hypoxic and in severe respiratory failure. His CXR showed b/l lower lobe infiltrates. So I switched his abx to Zosyn and Levaquin. Also gave him 4 dose of IV Lasix. He was placed on our BiPAP with FiO2 50%. His symptoms started improving slowly. His repeat CXR showed improving aeration and pneumonia at the basal regions. Now he is breathing comfortably on RA, however with ambulation / minimal exertion he is desating and required 3 lit o2 with ambulation. So recommended to use 3 lit O2 with ambulation and at night time. His cellulites and swelling in Rt leg also improved now. His repeat blood cx did not grow any bacteria. So will d/c him home with PO Abx Augmentin. His wheezing is better today, he does have severe hypo ventilation syndrome , so recommend to use frequent incentive spirometry and go for f/u sleep study. - Time Spent with Patient Total time spent providing and/or coordinating discharge services: - Discharge Medications Prescriptions: New Amoxicillin/Clavulanate [Augmentin] 875 mg PO BIDWM #10 tablet predniSONE [PredniSONE] 40 mg PO DAILY #8 tablet Continued Felodipine [Felodipine ER] 10 mg PO DAILY Folic Acid 1 mg PO DAILY Insulin DETEMIR [Levemir Flextouch] 51 unit SQ QPM Losartan/Hydrochlorothiazide [Losartan-Hctz 100-25 mg Tab] 1 tab PO DAILY Max B 1 tab PO DAILY Metformin HCl [Glucophage Xr] 1,000 mg PO BID Nebivolol HCl [Bystolic] 10 mg PO DAILY [place]-3/Dha/Epa/Fish Oil [Fish Oil 1,000 mg Softgel] 1 cap PO DAILY Ranolazine [Ranexa] 1,000 mg PO QAM Ranolazine [Ranexa] 500 mg PO QPM Rosuvastatin Calcium 10 mg PO DAILY Zinc [Zinc Chelated] 50 mg PO DAILY Aspirin 325 mg PO DAILY Changed Albuterol Sulfate [Proair Respiclick] 2 puff IH QID PRN #1 aer.pow.ba PRN Reason: Wheezing Home Medications: Aspirin 325 mg PO DAILY 10/14/18 [History] Felodipine [Felodipine ER] 10 mg PO DAILY 10/14/18 [History] Folic Acid 1 mg PO DAILY 10/14/18 [History] Insulin DETEMIR [Levemir Flextouch] 51 unit SQ QPM 10/14/18 [History] Losartan/Hydrochlorothiazide [Losartan-Hctz 100-25 mg Tab] 1 tab PO DAILY 10/14/18 [History] Max B 1 tab PO DAILY 10/14/18 [History] Metformin HCl [Glucophage Xr] 1,000 mg PO BID 10/14/18 [History] Nebivolol HCl [Bystolic] 10 mg PO DAILY 10/14/18 [History] [place]-3/Dha/Epa/Fish Oil [Fish Oil 1,000 mg Softgel] 1 cap PO DAILY 10/14/18 [History] Ranolazine [Ranexa] 1,000 mg PO QAM 10/14/18 [History] Ranolazine [Ranexa] 500 mg PO QPM 10/14/18 [History] Rosuvastatin Calcium 10 mg PO DAILY 10/14/18 [History] Zinc [Zinc Chelated] 50 mg PO DAILY 10/14/18 [History] Albuterol Sulfate [Proair Respiclick] 2 puff IH QID PRN #1 aer.pow.ba 10/17/18 [Rx] Amoxicillin/Clavulanate [Augmentin] 875 mg PO BIDWM #10 tablet 10/17/18 [Rx] predniSONE [PredniSONE] 40 mg PO DAILY #8 tablet 10/17/18 [Rx] Allergies/Adverse Reactions: Allergy/AdvReac Type Severity Reaction Status Date / Time iodine Allergy ITCH, Verified 10/14/18 09:49 SHORTNESS OF BREATH Date of admission: 10/13/18 10:07 Primary care physician: PCP NONE Consults: 10/15/18 14:16 Consult to Nurse Navigator [CONS] Routine Comment: PNEUMONIA - Constitutional Vitals: Temp Pulse Resp BP Pulse Ox 97.8 F 76 16 170/87 96 10/17/18 07:21 10/17/18 07:21 10/17/18 07:21 10/17/18 07:21 10/17/18 07:21 General appearance: Present: cooperative, A&O X 3, pleasant, no acute distress, answers questions appropriately Exam: Gen: Alert, awake, Oriented to time,place and person Chest: Diminished breath sounds B/L, moderate wheezing, No crackles, rales + Heart: S1S2+ RRR No murmurs Abd: Soft, NT, BS +, No organomegaly Ext: Improving edema, erythema and tenderness in Rt leg noticed.. He does mild chronic edema in left leg too. pulses are palpable, No calf tenderness Neuro : No acute focal neuro deficits noticed Skin: No rash. - Patient Status Disposition: Home Health Service Condition: Good Overall status at discharge: patient is back to baseline - Discharge Instructions Follow Up With: NONE,PCP [Primary Care Provider] - Forms: ED Satisfaction Letter Additional Instructions: Home oxygen has been set up through [facility] at the [facility] location. Call them when you get home to have equipment delivered. Their number is #[phone]. - Diet and Activity Activity: increase activity as tolerated, wear oxygen at night (and with ambulation) Diet: low salt diet
--- NOTE | 2018-10-17 09:51 | Physician Discharge Referral ---
Home Health/Hosp Referral Info Transfer to: Home Health Provider in Charge Post Discharge: PCP - Diagnosis (1) Acute respiratory failure with hypoxia Status: Acute (2) Pneumonia Status: Acute (3) COPD exacerbation Status: Acute (4) Sepsis Status: Acute (5) Bacteremia Status: Acute (6) Cellulitis of right leg Status: Acute (7) Right leg swelling Status: Acute (8) Diabetes Status: Acute (9) Obstructive sleep apnea Status: Acute (10) DVT prophylaxis Status: Acute - Respiratory Orders Smoking Cessation: Smoking cessation has been advised. For more information, call the [place] [email or web address] Quit Line at [phone]-NOW. - Services Needed Following services are medically necessary services: Nursing - Transfer Medications Prescriptions: Amoxicillin/Clavulanate [Augmentin] 875 mg PO BIDWM #10 tablet predniSONE [PredniSONE] 40 mg PO DAILY #8 tablet Albuterol Sulfate [Proair Respiclick] 2 puff IH QID PRN #1 aer.pow.ba PRN Reason: Wheezing Home Medications: Aspirin 325 mg PO DAILY 10/14/18 [History] Felodipine [Felodipine ER] 10 mg PO DAILY 10/14/18 [History] Folic Acid 1 mg PO DAILY 10/14/18 [History] Insulin DETEMIR [Levemir Flextouch] 51 unit SQ QPM 10/14/18 [History] Losartan/Hydrochlorothiazide [Losartan-Hctz 100-25 mg Tab] 1 tab PO DAILY 10/14/18 [History] Max B 1 tab PO DAILY 10/14/18 [History] Metformin HCl [Glucophage Xr] 1,000 mg PO BID 10/14/18 [History] Nebivolol HCl [Bystolic] 10 mg PO DAILY 10/14/18 [History] [place]-3/Dha/Epa/Fish Oil [Fish Oil 1,000 mg Softgel] 1 cap PO DAILY 10/14/18 [History] Ranolazine [Ranexa] 1,000 mg PO QAM 10/14/18 [History] Ranolazine [Ranexa] 500 mg PO QPM 10/14/18 [History] Rosuvastatin Calcium 10 mg PO DAILY 10/14/18 [History] Zinc [Zinc Chelated] 50 mg PO DAILY 10/14/18 [History] Albuterol Sulfate [Proair Respiclick] 2 puff IH QID PRN #1 aer.pow.ba 10/17/18 [Rx] Amoxicillin/Clavulanate [Augmentin] 875 mg PO BIDWM #10 tablet 10/17/18 [Rx] predniSONE [PredniSONE] 40 mg PO DAILY #8 tablet 10/17/18 [Rx] Allergies/Adverse Reactions: Allergy/AdvReac Type Severity Reaction Status Date / Time iodine Allergy ITCH, Verified 10/14/18 09:49 SHORTNESS OF BREATH Certification: Further, I certify that my clinical findings support that this patient is homebound (i.e. absences from home require considerable and taxing effort and are for medical reasons or jewish services or infrequently or short duration when for other reasons) because: Homebound Reason: Patient requires assistance of a person or device to safely leave home Attestation: My signature below is to certify that this patient is under my care and that I, or nurse practitioner, or a physician's assistant offset press operator working with me, has a [id number] encounter with this patient.
== END 2018-10-17 10:35 | disposition home health service (06) | DRG 871 ==
LOC: 3BNU 16:17 → EMEROOARM 16:17 → SUATTDRO 21:18 → 3BNU 22:00 → SUATTDRO 10-13 10:07
PROVIDERS: ADMIT Family Medicine; ATTEND Family Medicine